=== PATIENT | female | born 1995 ===

== ENCOUNTER 2018-03-31 15:08 | Emergency (ER) | payer SELFPAY ==
[~2018-03-31] VITALS: Ht 157.5 cm; Wt 59.1 kg
[2018-03-31 15:14] VITALS: Ht 157.5 cm; Wt 59.1 kg
[2018-03-31 16:16] LABS: BASOPHILS 0.2 % (0-2); EOSINOPHILS 2.1 % (0-7); HEMATOCRIT 38.1 % (36.0-48.0); HEMOGLOBIN 12.4 g/dL (12-16); IMMATURE GRANULOCYTES 0.2 % (0-5); LYMPHOCYTES 13.1 % (15-50); MCH 26.8 pg (26.0-34.0); MCHC 32.5 g/dL (31.0-37.0); MCV 82.5 fL (80.0-100.0); MEAN PLATELET VOLUME 9.3 fL (7.4-10.4); MONOCYTES 9.3 % (2-11); NEUTROPHILS 75.1 % (40-80); PLATELET COUNT 300 10x3/uL (130-400); RBC 4.62 10x6/uL (4.00-5.40); RDW 15.8 % (11.5-14.5); WBC 12.2 10x3/uL (4.8-10.8)
[2018-03-31 16:31] LABS: ALBUMIN 3.7 g/dL (3.4-5.0); ALKALINE PHOSPHATASE 69 U/L (46-116); ALT (SGPT) 20 U/L (10-68); AMYLASE - SERUM 53 U/L (25-115); BILIRUBIN - TOTAL 0.42 mg/dL (0.2-1.3); CALC OSMOLALITY 276 mosm/kg (275-300); CALCIUM 8.8 mg/dL (8.5-10.1); CARBON DIOXIDE 27.4 mmol/L (21.0-32.0); CHLORIDE - SERUM 102 mmol/L (98-107); CREATININE - SERUM 0.7 mg/dL (0.6-1.3); LIPASE 124 U/L (73-393); POTASSIUM - SERUM 3.2 mmol/L (3.5-5.1); PROTEIN - SERUM 7.6 g/dL (6.4-8.2); SODIUM 139 mmol/L (136-145); UREA NITROGEN 14 mg/dL (7-18); eGFR NON AFRICAN AMERICAN > 90 mL/min (90-120)
[2018-03-31 16:39] LABS: GLUCOSE 68 mg/dL (74-106)
[2018-03-31 17:04] LABS: HCG URINE NEGATIVE (NEGATIVE)
[2018-03-31 17:05] LABS: APPEARANCE HAZY (CLEAR); BILIRUBIN NEGATIVE (NEGATIVE); COLOR YELLOW (YELLOW); GLUCOSE NEGATIVE (NEGATIVE); KETONE NEGATIVE (NEGATIVE); NITRITE POSITIVE (NEGATIVE); PROTEIN TRACE mg/dL (NEGATIVE); SPECIFIC GRAVITY 1.015 (1.005-1.020); UROBILINOGEN NORMAL (NORMAL)
[2018-03-31 17:06] LABS: BACTERIA MANY /hpf (NONE SEEN); RED CELLS - URINE 0-5 /hpf (0-5)
[2018-03-31] MEDS ORDERED: MACROBID100 MG PO (18:18)
[2018-03-31] MEDS ORDERED: ZOFRAN8 MG PO (18:18)
[2018-03-31] MEDS ORDERED: TORADOL10 MG PO (18:18)
[2018-03-31 19:25] VITALS: BP 97/69
== END 2018-03-31 19:26 | disposition home or self-care (01) ==
LOC: D.ER 15:08
PROVIDERS: Family Medicine
DX: R10.2 Pelvic and perineal pain (principal); R11.0 Nausea; N39.0 Urinary tract infection, site not specified; R30.0 Dysuria